=== PATIENT | male | born 1985 | race Hispanic/Latino ===

== ENCOUNTER 2017-04-23 16:43 | Emergency (ER) | payer OTHER ==
[~2017-04-23] VITALS: Ht 180.3 cm; Wt 100.0 kg
[~2017-04-23 16:43] MED LIST: AMOXICILLIN500 MG OR; ANUCORT-HC25 MG RE; BACTRIM DS1 TAB OR; FLAGYL500 MG OR; NAPROSYN500 MG PO; NO HOME MEDS; NORCO1 TA1 PO; PERCOCET 5/325M1 TAB OR
[2017-04-23] MEDS ORDERED: TRAMADOL HYDROC50 MG (16:51)
[2017-04-23] MEDS ORDERED: PERCOCET 5/325M1 TAB PO (17:43)
[2017-04-23] MEDS ORDERED: MOTRIN800 MG PO (17:43)
[2017-04-23 17:45] VITALS: BP 137/95
== END 2017-04-23 18:00 | disposition home or self-care (01) | DRG 566 ==
LOC: ED 16:43
DX: M25.461 Effusion, right knee (principal); M25.561 Pain in right knee; G89.29 Other chronic pain; R50.9 Fever, unspecified

== ENCOUNTER 2019-02-05 20:24 | Emergency (ER) | payer OTHER ==
[~2019-02-05] VITALS: Ht 180.3 cm; Wt 133.4 kg
[~2019-02-05 20:24] MED LIST changes: +MOTRIN800 MG PO; +PERCOCET 5/325M1 TAB PO; +TRAMADOL HYDROC50 MG
[2019-02-05 21:19] LABS: HEMATOCRIT 46.6 % (39.0-50.0); HEMOGLOBIN 15.4 g/dl (14.0-18.0); IMMATURE GRANULOCYTES 0.5 % (0.0-5.0); MEAN CELL VOLUME 86.1 fL CALC (80.0-100.0); MEAN CORPUSCULAR HGB 28.5 pG CALC (26.0-32.0); NEUT# 6.43 thou/uL (1.82-7.42); RED BLOOD COUNT 5.41 mill/uL (4.70-6.10); RED CELL DISTRI WIDTH 12.9 % (11.5-15.5)
[2019-02-05 21:47] LABS: ALBUMIN 4.1 g/dL (3.2-5.0); ALKALINE PHOSPHATASE 103 u/l (38-126); ANION GAP 12 (6-22 (CALC)); BILIRUBIN, TOTAL 0.3 mg/dL (0.0-1.4); BUN 15 mg/dL (9-20); BUN/CREATININE RATIO 14 (12-20 (CALC)); CARBON DIOXIDE 26 mmol/l (22-30); CHLORIDE 105 mmol/l (95-108); GFR > 60 ML/MIN (>=60 (CALC)); GFR FOR AFR.AMER. > 60 ML/MIN (>=60 (CALC)); POTASSIUM 4.4 mmol/l (3.5-5.1); SGOT/AST 28 u/l (17-59); SODIUM 139 mmol/l (137-146); TOTAL PROTEIN 7.5 g/dL (6.3-8.2)
[2019-02-05] MEDS ORDERED: TORADOL PO (22:16)
[2019-02-05 22:38] VITALS: BP 128/85
== END 2019-02-05 22:38 | disposition home or self-care (01) | DRG 556 ==
LOC: ED 20:24
PROVIDERS: Family Medicine
DX: M25.562 Pain in left knee (principal); M25.561 Pain in right knee; M25.462 Effusion, left knee; M25.461 Effusion, right knee; J06.9 Acute upper respiratory infection, unspecified; G89.29 Other chronic pain